=== PATIENT | male | born 1955 | race Caucasian/White ===

== ENCOUNTER 2017-09-24 05:46 | Inpatient (IN) | payer BC ==
[2017-09-24] MEDS: SOD CHLORIDE 0.9% 100 ML, TRANEXAMIC ACID 3,000 MG IRR (06:00)
[2017-09-24] MEDS: BUPIVACAINE 0.5% (SDV) 30 ML, morphine SULFATE (PF) 8 MG, EPINEPHrine 0.3 MG, KETOROLAC... IRR ×2 (06:00→07:44)
[2017-09-24] MEDS: CEFAZOLIN 2 GM/50 ML (PMX) 50 ML IVPB (06:00)
[2017-09-24] MEDS: traMADol 50 MG TAB PO (06:00)
[2017-09-24] MEDS: DEXAMETHASONE 1 MG TAB PO (06:20)
[2017-09-24] MEDS: GABAPENTIN 300 MG CAP PO ×2 (06:21→21:00)
[2017-09-24] MEDS ORDERED: THROMBIN 5000 UNIT VIAL (06:49)
[2017-09-24] MEDS ORDERED: CA CHLORIDE 10% 10 ML SYRINGE (06:49)
[2017-09-24] MEDS: TRANEXAMIC ACID 1,000 MG in DEXTROSE 5% 100 ML IVPB (06:56)
[2017-09-24] MEDS: POLYMYXIN/BACITRACIN 1L IRRIG (07:44)
[2017-09-24] MEDS: LACTATED RINGER'S 1,000 ML IV ×2 (08:36→17:27)
[2017-09-24] MEDS ORDERED: VALSARTAN 160 MG TAB PO (09:00)
[2017-09-24] MEDS ORDERED: MAGNESIUM HYDROXIDE 30ML CUP PO (09:00)
[2017-09-24] MEDS ORDERED: ACETAMINOPHEN 500 MG TAB PO (09:00)
[2017-09-24] MEDS ORDERED: OXYCODONE/ACETAMINOPHEN (5/325) TAB PO ×2 (09:00)
[2017-09-24] MEDS: SENNA/DOCUSATE NA (8.6MG/50MG) TAB PO ×2 (09:00→21:00)
[2017-09-24] MEDS ORDERED: ZOLPIDEM 5 MG TAB PO ×2 (09:00→09:30)
[2017-09-24] MEDS ORDERED: ONDANSETRON 4 MG INJ IV ×2 (09:00→09:30)
[2017-09-24] MEDS: CEFAZOLIN 1 GM/50 ML (PMX) 50 ML IVPB ×2 (09:27→16:11)
[2017-09-24] MEDS ORDERED: NALOXONE (0.4 MG/ML) INJ IV (09:30)
[2017-09-24] MEDS ORDERED: NALBUPHINE HCL (10 MG/1 ML) INJ IV (09:30)
[2017-09-24] MEDS ORDERED: DIPHENHYDRAMINE 50 MG INJ IV (09:30)
[2017-09-24] MEDS ORDERED: TRIMETHOBENZAMIDE 100 MG/ML VIAL IM (09:30)
[2017-09-24] MEDS ORDERED: HYDROmorphONE 0.5 MG/0.5 ML SYG IV ×2 (09:30)
[2017-09-24] MEDS: TRANEXAMIC ACID 1,000 MG in DEXTROSE 5% 100 ML IV (09:51)
[2017-09-24 11:08] LABS: ADD MAN DIFF? NO
[2017-09-24 11:13] LABS: WHITE BLOOD COUNT 9.1 10^3/ul (4.8-10.8)
[2017-09-24 11:13] LABS: BASOPHILS % 0.3 % (0.0-2.0); EOSINOPHILS % 0.4 % (0.0-7.0); HEMOGLOBIN 12.2 g/dl (14.0-18.0); LYMPHOCYTES # 0.8 10^3/ul (0.8-2.9); LYMPHOCYTES % 8.7 % (15.0-51.0); MEAN CORPUSCULAR HEMOGLOBIN 30.6 pg (29.0-33.0); MEAN CORPUSCULAR HGB CONC 33.9 g/dl (32.0-37.0); MEAN CORPUSCULAR VOLUME 90.2 fl (82.0-101.0); MONOCYTE # 0.1 10^3/ul (0.3-0.9); MONOCYTES % 0.8 % (0.0-11.0); NEUTROPHIL # 8.1 10^3/ul (1.6-7.5); NEUTROPHILS % 89.4 % (39.0-77.0); PLATELET COUNT 179 10^3/UL (140-415); RED BLOOD COUNT 3.99 10^6/ul (4.70-6.10); RED CELL DISTRIBUTION WIDTH 12.6 % (11.5-14.5)
[2017-09-24] MEDS: DEXAMETHASONE 2 MG TAB PO ×2 (12:28→17:03)
[2017-09-24] MEDS ORDERED: HYDROmorphONE 2 MG TAB PO (16:00)
[2017-09-24] MEDS: DIPHENHYDRAMINE 50 MG INJ IV (16:14)
[2017-09-24] MEDS: morphine 2 MG INJ IV (21:00)
[2017-09-24] MEDS: VALSARTAN 160 MG TAB PO (21:00)
[2017-09-24] MEDS: KETOROLAC 30 MG INJ IV (22:24)
[2017-09-25] MEDS: CEFAZOLIN 1 GM/50 ML (PMX) 50 ML IVPB (00:37)
[2017-09-25] MEDS: DEXAMETHASONE 2 MG TAB PO ×2 (00:37→05:49)
[2017-09-25] MEDS: LACTATED RINGER'S 1,000 ML IV (01:38)
[2017-09-25] MEDS: morphine 2 MG INJ IV ×2 (04:15→08:38)
[2017-09-25] MEDS: DIPHENHYDRAMINE 50 MG INJ IV (04:18)
[2017-09-25 05:15] LABS: ADD MAN DIFF? NO
[2017-09-25 05:26] LABS: WHITE BLOOD COUNT 10.8 10^3/ul (4.8-10.8)
[2017-09-25 05:26] LABS: BASOPHILS % 0.2 % (0.0-2.0); HEMATOCRIT 32.2 % (42.0-52.0); LYMPHOCYTES # 0.7 10^3/ul (0.8-2.9); LYMPHOCYTES % 6.4 % (15.0-51.0); MEAN CORPUSCULAR HEMOGLOBIN 30.9 pg (29.0-33.0); MEAN CORPUSCULAR HGB CONC 34.2 g/dl (32.0-37.0); MEAN CORPUSCULAR VOLUME 90.4 fl (82.0-101.0); MEAN PLATELET VOLUME 9.2 fl (7.4-10.4); MONOCYTE # 0.6 10^3/ul (0.3-0.9); NEUTROPHIL # 9.4 10^3/ul (1.6-7.5); NEUTROPHILS % 86.9 % (39.0-77.0); PLATELET COUNT 182 10^3/UL (140-415); RED BLOOD COUNT 3.56 10^6/ul (4.70-6.10); RED CELL DISTRIBUTION WIDTH 12.5 % (11.5-14.5)
[2017-09-25] MEDS: KETOROLAC 15 MG INJ IV (05:49)
[2017-09-25] MEDS: ASPIRIN 81 MG TAB PO (08:29)
[2017-09-25] MEDS: SENNA/DOCUSATE NA (8.6MG/50MG) TAB PO (08:29)
[2017-09-25 10:02] LABS: ADD UMIC YES; UR ASCORBIC ACID NEGATIVE (NEGATIVE); UR BILIRUBIN (Dip) NEGATIVE (NEGATIVE); UR BLOOD (Dip) 1+ mg/dL (NEGATIVE); UR CLARITY CLEAR (CLEAR); UR COLOR YELLOW (YELLOW); UR GLUCOSE (Dip) NEGATIVE (NEGATIVE); UR KETONES (Dip) NEGATIVE (NEGATIVE); UR LEUKOCYTE ESTERASE (Dip) NEGATIVE Leu/ul (NEGATIVE); UR NITRITE (Dip) NEGATIVE (NEGATIVE); UR RBC 4 /HPF (0-5); UR SPECIFIC GRAVITY (Dip) 1.016 (1.003-1.030); UR TOTAL PROTEIN (Dip) NEGATIVE (NEGATIVE); UR UROBILINOGEN (Dip) NEGATIVE (NEGATIVE); UR WBC 1 /HPF (0-5)
[2017-09-28] MEDS ORDERED: PROPOFOL 20 ML (07:34)
[2017-09-28] MEDS ORDERED: ONDANSETRON 4 MG INJ (07:34)
[2017-09-28] MEDS ORDERED: MIDAZOLAM 1 MG/ML 2 ML INJ (07:34)
[2017-09-28] MEDS ORDERED: FENTAnyl 50 MCG/ML VIAL (07:34)
[2017-09-28] MEDS ORDERED: DEXAMETHASONE 4 MG/ML 1 ML INJ (07:34)
[2017-09-28] MEDS ORDERED: PHENYLephrine (100 MCG/ML) 5ML SYG (07:34)
[2017-09-28] MEDS ORDERED: morphine SULFATE/PF (10 MG/10 ML) INJ (07:34)
[2017-09-28] MEDS ORDERED: LIDOCAINE 1% (MDV) 20 ML INJ (07:34)
[2017-09-28] MEDS ORDERED: BUPIVACAINE 0.75%/DEXT (SPINAL) 2 ML INJ (07:34)
[2017-09-28] MEDS ORDERED: FAMOTIDINE 20 MG INJ (07:34)
== END 2017-09-25 11:05 | disposition home or self-care (01) | DRG 470 ==
LOC: REC 05:46 → MS1 10:10
PROVIDERS: Orthopaedic Surgery
PROC: 0SRB04A Replacement of Left Hip Joint with Ceramic on Polyethylene Synthetic Substitute, Uncemented, Open Approach (ICD-10-PCS; principal; 2017-09-24 06:43)
DX: M16.12 Unilateral primary osteoarthritis, left hip (principal); I10 Essential (primary) hypertension
CPT/HCPCS: 72170; 73530; 81001; 85025; 86999; 87086; 97161

== ENCOUNTER 2018-01-07 06:37 | Inpatient (IN) | payer BC ==
[2018-01-07] MEDS: CA CHLORIDE 10% 10 ML SYRINGE (07:03)
[2018-01-07] MEDS: POLYMYXIN/BACITRACIN 1L IRRIG (07:03)
[2018-01-07] MEDS: BUPIVACAINE 0.5%/EPI (SDV) 30 ML INJ (07:03)
[2018-01-07] MEDS: THROMBIN 5000 UNIT VIAL (07:03)
[2018-01-07] MEDS: OXYCODONE PO (07:14)
[2018-01-07] MEDS: DEXAMETHASONE 2 MG TAB PO ×3 (07:16→17:14)
[2018-01-07] MEDS: traMADol 50 MG TAB PO (07:16)
[2018-01-07] MEDS ORDERED: PROPOFOL 20 ML (07:43)
[2018-01-07] MEDS ORDERED: DEXAMETHASONE 4 MG/ML 1 ML INJ (07:43)
[2018-01-07] MEDS ORDERED: CEFAZOLIN 1 GM INJ (07:43)
[2018-01-07] MEDS ORDERED: ONDANSETRON 4 MG INJ (07:43)
[2018-01-07] MEDS ORDERED: FENTAnyl 50 MCG/ML VIAL (07:43)
[2018-01-07] MEDS ORDERED: NEOSTIGMINE 3 MG/3 ML SYRINGE (07:43)
[2018-01-07] MEDS ORDERED: GLYCOPYRROLATE 0.4 MG INJ (07:43)
[2018-01-07] MEDS ORDERED: ROCURONIUM 50 MG INJ (07:43)
[2018-01-07] MEDS ORDERED: MIDAZOLAM 1 MG/ML 2 ML INJ (07:43)
[2018-01-07] MEDS ORDERED: ROPIVACAINE 0.5 % 30 ML VIAL (07:44)
[2018-01-07] MEDS ORDERED: HYDROmorphONE 1 MG/5 ML IV SYRINGE IV ×3 (08:30)
[2018-01-07] MEDS ORDERED: EPHEDrine SULFATE 50 MG/5 ML SYG IV (08:30)
[2018-01-07] MEDS ORDERED: MIDAZOLAM 1 MG/ML 2 ML INJ IV (08:30)
[2018-01-07] MEDS ORDERED: ALBUTEROL 0.083% (NEB) 2.5 MG/3 ML AMP HHN (08:30)
[2018-01-07] MEDS ORDERED: ONDANSETRON 4 MG INJ IV ×2 (08:30→11:00)
[2018-01-07] MEDS ORDERED: hydrALAzine 20 MG INJ IV (08:30)
[2018-01-07] MEDS ORDERED: DIPHENHYDRAMINE 50 MG INJ IV ×2 (08:30→11:00)
[2018-01-07] MEDS ORDERED: MEPERIDINE 25 MG INJ IV (08:30)
[2018-01-07] MEDS ORDERED: IPRATROPIUM (NEB) 0.5 MG/2.5 ML AMP HHN (08:30)
[2018-01-07] MEDS ORDERED: LABETALOL HCL 20MG INJ IV (08:30)
[2018-01-07] MEDS ORDERED: FENTAnyl 50 MCG/ML VIAL IV ×3 (08:30)
[2018-01-07] MEDS ORDERED: TRIMETHOBENZAMIDE 100 MG/ML VIAL IM (08:30)
[2018-01-07] MEDS: TRANEXAMIC ACID 1,000 MG in DEXTROSE 5% 100 ML IVPB (09:15)
[2018-01-07] MEDS: CEFAZOLIN 1 GM/50 ML (PMX) 50 ML IVPB ×2 (09:17→17:14)
[2018-01-07] MEDS ORDERED: SUGAMMADEX SODIUM 200 MG/2 ML VIAL IV (10:27)
[2018-01-07] MEDS ORDERED: morphine 2 MG INJ IV (11:00)
[2018-01-07] MEDS ORDERED: ACETAMINOPHEN 500 MG TAB PO (11:00)
[2018-01-07] MEDS ORDERED: OXYCODONE/ACETAMINOPHEN (5/325) TAB PO ×2 (11:00)
[2018-01-07] MEDS ORDERED: ZOLPIDEM 5 MG TAB PO (11:00)
[2018-01-07] MEDS: TRANEXAMIC ACID 1,000 MG in DEXTROSE 5% 100 ML IV (11:37)
[2018-01-07] MEDS: morphine 2 MG INJ IV ×3 (12:51→21:09)
[2018-01-07] MEDS: KETOROLAC 15 MG INJ IV ×2 (13:21→19:31)
[2018-01-07] MEDS: HYDROmorphONE 2 MG TAB PO (18:06)
[2018-01-07] MEDS: MAGNESIUM HYDROXIDE 30ML CUP PO (18:13)
[2018-01-07] MEDS: GABAPENTIN 300 MG CAP PO (21:01)
[2018-01-07] MEDS: SENNA/DOCUSATE NA (8.6MG/50MG) TAB PO (21:01)
[2018-01-08] MEDS: DEXAMETHASONE 2 MG TAB PO ×2 (01:06→06:44)
[2018-01-08] MEDS: CEFAZOLIN 1 GM/50 ML (PMX) 50 ML IVPB ×2 (01:09→09:16)
[2018-01-08] MEDS: morphine 2 MG INJ IV ×3 (01:11→10:16)
[2018-01-08] MEDS: KETOROLAC 15 MG INJ IV ×2 (02:03→08:04)
[2018-01-08] MEDS: HYDROmorphONE 2 MG TAB PO ×2 (03:02→09:15)
[2018-01-08] MEDS: LOSARTAN 50 MG TAB PO (09:00)
[2018-01-08] MEDS: SENNA/DOCUSATE NA (8.6MG/50MG) TAB PO (09:15)
[2018-01-08] MEDS: ASPIRIN 81 MG TAB PO (09:15)
== END 2018-01-08 10:50 | disposition home or self-care (01) | DRG 483 ==
LOC: REC 06:37 → MS1 12:02
PROC: 0RRK0JZ Replacement of Left Shoulder Joint with Synthetic Substitute, Open Approach (ICD-10-PCS; principal; 2018-01-07 08:30)
PROC: 0PBB0ZZ Excision of Left Clavicle, Open Approach (ICD-10-PCS; 2018-01-07 08:30)
PROC: 0LS40ZZ Reposition Left Upper Arm Tendon, Open Approach (ICD-10-PCS; 2018-01-07 08:30)
DX: M19.012 Primary osteoarthritis, left shoulder (principal); M19.90 Unspecified osteoarthritis, unspecified site; M24.012 Loose body in left shoulder; I10 Essential (primary) hypertension; E78.5 Hyperlipidemia, unspecified
CPT/HCPCS: 73030; 86999; 88304; 88311; 90686; 97166